=== PATIENT | female | born 1940 | race Caucasian/White ===

== ENCOUNTER → 2017-07-11 | Outpatient (CLI) | payer OTHER | LOC: FIMAGING 09:09 | PROVIDERS: ATTEND Internal Medicine | DX: Z12.31 Encounter for screening mammogram for malignant neoplasm of breast (principal) | CPT/HCPCS: G0202 ==

== ENCOUNTER 2018-04-09 16:31 | Inpatient (IN) | payer OTHER ==
[2018-04-09] MEDS ORDERED: NS 1,600 ML IV ONE (17:17)
[2018-04-09] MEDS ORDERED: ACETAMINOPHEN 500 MG TAB PO ONE (17:18)
--- NOTE | 2018-04-09 17:20 | EDPHY ---
H & P Stated Complaint: l sided abd pain dysuria/fever chills Time Seen by Provider: 04/09/18 17:09 HPI/ROS: CHIEF COMPLAINT: Dysuria, left flank pain, fever HISTORY OF PRESENT ILLNESS: The patient is a 77-year-old female who comes to the emergency department with her daughter who is a family practitioner. She was on a trip and while in [place] over the last week developed dysuria and frequency. Also now some right flank pain and fever. She has not been on any medications. No rashes. No nausea vomiting. No abdominal pain. She states she has not been drinking enough water. Severity: Moderate Modifying factors: Urination REVIEW OF SYSTEMS: Constitutional: denies: chills, fever, recent illness, recent injury EENTM: denies: blurred vision, double vision, nose congestion Respiratory: denies: cough, shortness of breath Cardiac: denies: chest pain, irregular heart rate, lightheadedness, palpitations Gastrointestinal/Abdominal: denies: abdominal pain, diarrhea, nausea, vomiting, blood streaked stools Genitourinary: See HPI Musculoskeletal: denies: joint pain, muscle pain Skin: denies: lesions, rash, jaundice, bruising Neurological: denies: headache, numbness, paresthesia, tingling, dizziness, weakness Hematologic/Lymphatic: denies: blood clots, easy bleeding, easy bruising Immunologic/allergic: denies: HIV/AIDS, transplant EXAM: GENERAL: Well-appearing, well-nourished and in no acute distress. HEAD: Atraumatic, normocephalic. EYES: Pupils equal round and reactive to light, extraocular movements intact, sclera anicteric, conjunctiva are normal. ENT: TMs normal, nares patent, oropharynx clear without exudates. Moist mucous membranes. NECK: Normal range of motion, supple without lymphadenopathy or JVD. LUNGS: Breath sounds clear to auscultation bilaterally and equal. No wheezes rales or rhonchi. HEART: Regular rate and rhythm without murmurs, rubs or gallops. ABDOMEN: Soft, nontender, normoactive bowel sounds. No guarding, no rebound. No masses appreciated. BACK: No CVA tenderness, no spinal tenderness, step-offs or deformities EXTREMITIES: Normal range of motion, no pitting or edema. No clubbing or cyanosis. NEUROLOGICAL: Cranial nerves II through XII grossly intact. Normal speech, normal gait. 5/5 strength, normal movement in all extremities, normal sensation , normal reflexes PSYCH: Normal mood, normal affect. SKIN: Warm, dry, normal turgor, no visible rashes or lesions. Source: Patient Exam Limitations: No limitations - Personal History Current Tetanus/Diphtheria Vaccine: Yes - Medical/Surgical History Hx Asthma: No Hx Chronic Respiratory Disease: No Hx Diabetes: No Hx Cardiac Disease: No Hx Renal Disease: No Hx Cirrhosis: No Hx Alcoholism: No Hx HIV/AIDS: No Hx Splenectomy or Spleen Trauma: No Other PMH: Prediabetic. r heart cath nml. hernia repair. acl repair. bunionectomy. Hypothyroidism - Family History Significant Family History: No pertinent family hx - Social History Smoking Status: Never smoked Alcohol Use: Sober Drug Use: None Constitutional: Initial Vital Signs Temperature (C) 38 C 04/09/18 16:41 Heart Rate 90 04/09/18 16:41 Respiratory Rate 17 04/09/18 16:41 Blood Pressure 136/70 H 04/09/18 16:41 O2 Sat (%) 91 L 04/09/18 16:41 O2 Delivery Mode Nasal Cannula O2 (L/minute) 2 Allergies/Adverse Reactions: No Known Allergies Allergy (Verified 04/09/18 18:51) Home Medications: Medication Instructions Recorded Thyroid,Pork [[place] Thyroid] 15 mg PO DAILY 04/09/18 Thyroid,Pork [[place] Thyroid] 30 mg PO DAILY 04/09/18 Medical Decision Making ED Course/Re-evaluation: 6:15 p.m. We discussed the patient's lab results. She does not appear to be septic. I will start her on Rocephin. She agrees with admission. I discussed the case Dr. Chávez who agrees to admit. Differential Diagnosis: Partial list of the Differential diagnosis considered include but were not limited to; pyelonephritis, urinary tract infection, sepsis and although unlikely based on the history and physical exam, I also considered severe sepsis , shock, abscess, obstruction, ischemia, abscess, PID. - Data Points Laboratory Results: Laboratory Results 04/09/18 17:15 04/09/18 17:15 04/09/18 04/09/18 04/09/18 17:15 17:15 17:15 WBC 13.69 10^3/uL H 10^3/uL (3.80-9.50) RBC 3.81 10^6/uL L 10^6/uL (4.18-5.33) Hgb 11.4 g/dL L g/dL (12.6-16.3) Hct 34.0 % L % (38.0-47.0) MCV 89.2 fL fL (81.5-99.8) MCH 29.9 pg pg (27.9-34.1) MCHC 33.5 g/dL g/dL (32.4-36.7) RDW 13.0 % % (11.5-15.2) Plt Count 280 10^3/uL 10^3/uL (150-400) MPV 9.6 fL fL (8.7-11.7) Neut % (Auto) 83.1 % H % (39.3-74.2) Lymph % (Auto) 8.8 % L % (15.0-45.0) [place] % (Auto) 7.0 % % (4.5-13.0) Eos % (Auto) 0.1 % L % (0.6-7.6) Baso % (Auto) 0.6 % % (0.3-1.7) Nucleat RBC Rel Count 0.0 % % (0.0-0.2) Absolute Neuts (auto) 11.37 10^3/uL H 10^3/uL (1.70-6.50) Absolute Lymphs (auto) 1.20 10^3/uL 10^3/uL (1.00-3.00) Absolute Monos (auto) 0.96 10^3/uL H 10^3/uL (0.30-0.80) Absolute Eos (auto) 0.02 10^3/uL L 10^3/uL (0.03-0.40) Absolute Basos (auto) 0.08 10^3/uL 10^3/uL (0.02-0.10) Absolute Nucleated RBC 0.00 10^3/uL 10^3/uL (0-0.01) Immature Gran % 0.4 % % (0.0-1.1) Immature Gran # 0.06 10^3/uL 10^3/uL (0.00-0.10) PT 14.6 SEC SEC (12.0-15.0) INR 1.12 (0.83-1.16) APTT 29.3 SEC SEC (23.0-38.0) VBG Lactic Acid Sodium 130 mEq/L L mEq/L (135-145) Potassium 4.3 mEq/L mEq/L (3.3-5.0) Chloride 90 mEq/L L mEq/L (97-110) Carbon Dioxide 27 mEq/l mEq/l (22-31) Anion Gap 13 mEq/L mEq/L (8-16) BUN 15 mg/dL mg/dL (7-23) Creatinine 1.0 mg/dL mg/dL (0.6-1.0) Estimated GFR 54 Glucose 109 mg/dL H mg/dL (70-100) Calcium 9.0 mg/dL mg/dL (8.5-10.4) Total Bilirubin 1.6 mg/dL H mg/dL (0.1-1.4) Urine Color Urine Appearance Urine pH Ur Specific [place] Urine Protein Urine Ketones Urine Blood Urine Nitrate Urine Bilirubin Urine Urobilinogen Ur Leukocyte Esterase Urine RBC Urine WBC Ur Epithelial Cells Amorphous Sediment Urine Bacteria Urine Glucose 04/09/18 04/09/18 17:15 16:43 WBC RBC Hgb Hct MCV MCH MCHC RDW Plt Count MPV Neut % (Auto) Lymph % (Auto) [place] % (Auto) Eos % (Auto) Baso % (Auto) Nucleat RBC Rel Count Absolute Neuts (auto) Absolute Lymphs (auto) Absolute Monos (auto) Absolute Eos (auto) Absolute Basos (auto) Absolute Nucleated RBC Immature Gran % Immature Gran # PT INR APTT VBG Lactic Acid 1.0 mmol/L mmol/L (0.7-2.1) Sodium Potassium Chloride Carbon Dioxide Anion Gap BUN Creatinine Estimated GFR Glucose Calcium Total Bilirubin Urine Color PALE YELLOW Urine Appearance HAZY Urine pH 5.0 (5.0-7.5) Ur Specific [place] 1.006 (1.002-1.030) Urine Protein 1+ H (NEGATIVE) Urine Ketones NEGATIVE (NEGATIVE) Urine Blood 1+ H (NEGATIVE) Urine Nitrate NEGATIVE (NEGATIVE) Urine Bilirubin NEGATIVE (NEGATIVE) Urine Urobilinogen NEGATIVE EU EU (0.2-1.0) Ur Leukocyte Esterase 3+ H (NEGATIVE) Urine RBC 15-25 /hpf H /hpf (0-3) Urine WBC 50-182 /hpf H /hpf (0-3) Ur Epithelial Cells TRACE /lpf /lpf (NONE-1+) Amorphous Sediment PRESENT /hpf /hpf (NONE-1+) Urine Bacteria 2+ /hpf H /hpf (NONE SEEN) Urine Glucose 1+ H (NEGATIVE) Medications Given: Discontinued Medications Acetaminophen (Tylenol) 1,000 mg PO EDNOW ONE Stop: 04/09/18 17:19 Last Admin: 04/09/18 17:26 Dose: 1,000 mg Sodium Chloride (Ns) 1,600 mls @ 3,200 mls/hr 30 ml/kg infuse over 30 min ( 1600 ml) IV EDNOW ONE PRN Reason: Protocol Stop: 04/09/18 17:46 Last Admin: 04/09/18 17:27 Dose: 1,600 mls Ceftriaxone Sodium/Dextrose (Rocephin 1 Gm (Premix)) 50 mls @ 100 mls/hr IV EDNOW ONE PRN Reason: Protocol Stop: 04/09/18 18:41 Last Admin: 04/09/18 18:48 Dose: 50 mls Departure - Departure Disposition: [facility] Inpatient Acute Clinical Impression: Pyelonephritis Condition: Fair
[2018-04-09 17:30] LABS: PLATELET COUNT 280 10^3/uL (150-400)
[2018-04-09 17:43] LABS: INR 1.12 (0.83-1.16); PROTIME(PATIENT) 14.6 SEC (12.0-15.0)
[2018-04-09] MEDS ORDERED: ONDANSETRON 4 MG/2 ML VIAL IVP PRN (18:17)
[2018-04-09] MEDS ORDERED: ACETAMINOPHEN 325 MG TAB PO PRN (18:17)
[2018-04-09] MEDS ORDERED: ONDANSETRON DISINTEGRATING 4 MG TAB PO PRN (18:17)
--- NOTE | 2018-04-09 19:53 | GHP ---
[f rep st] HISTORY AND PHYSICAL DATE OF ADMISSION: 04/09/2018 CHIEF COMPLAINT: UTI, fatigue. HISTORY OF PRESENT ILLNESS: A 77-year-old female with hypothyroidism presenting with 6-7 days of fevers, chills, suprapubic pain. She saw her PCP, Dr. Weiss, today when sent over to the ER. She has been traveling in [place] since March 19 and has felt a drastic decline over the last week. She has had just dribbling, urinary output, no appetite. She had significant pain in her right flank 2 days ago that her had to push her around in a wheelchair. She has not been eating and drinking for the past several days. REVIEW OF SYSTEMS: I completed a 10-point review of systems, negative except as noted in HPI. PAST MEDICAL HISTORY: Hypothyroidism, prediabetes, history of enterobacter UTI. PAST SURGICAL HISTORY: Bunionectomy, femoral hernia, varicose veins. FAMILY HISTORY: Dad with emphysema. Mother was healthy. Daughter is a physician. SOCIAL HISTORY: Lives in the area with her . No alcohol, tobacco, or illicits. ALLERGIES: None. HOME MEDICATIONS: [place] 45 mg daily. PHYSICAL EXAMINATION: VITAL SIGNS: Temperature 38.7. Blood pressure is 130/ 75. Heart rate is in the 70s, respirations 20, 98% on 2 L. GENERAL: She is ill appearing, tired. HEENT: Dry mucous membranes. CV: Regular rate and rhythm. No murmurs, gallops, or rubs. LUNGS: Clear. ABDOMEN: Soft, nontender. : Right suprapubic mild flank tenderness to palpation. NEURO: 2 -12 intact. PSYCH: Alert and oriented x3. LABS: WBC 13, hemoglobin 11, hematocrit 34, platelets 280. Sodium 130, potassium 4.4, chloride 90, BUN 15, creatinine is 1. Glucose 109, total bilirubin 1.2, unconjugated 1.2, AST 81, ALT 83, alkaline phos 127. UA +3 leukocytes, 50-182 WBCs, +2 bacteria. Blood and urine cultures are pending. ASSESSMENT AND PLAN: 1. Sepsis: from urinary tract infection. Lactate is normal. Will hydrate. Treat with intravenous ceftriaxone. Cultures are pending. Check a renal ultrasound for abscess with flank tenderness. 2. Hypovolemic hyponatremia: Endorses decreased by mouth intake. Will hydrate and repeat in the morning. 3. Transaminitis: Suspect hypotension with decreased p.o. intake. Will repeat in the morning. 4. Leukocytosis: Secondary to acute infection. Plan as above. 5. Hyperbilirubinemia: infection or stones? No RUQ TTP. US pending 6.Diet: Regular. 7. DVT ppx: Lovenox. DISPOSITION: Patient warrants inpatient admission given acute sepsis warranting IV antibiotics, sepsis and cultures and sensitivities. /[id number]/MODL MTDFred
[2018-04-09] MEDS ORDERED: NS 1,000 ML IV SCH (23:45)
[2018-04-10] MEDS ORDERED: ALBUTEROL 3 ML DEYVIAL IH PRN (00:36)
--- NOTE | 2018-04-10 10:24 | ASMTCMCOM ---
CM Note CM Note Notes: Patient admitted with a UTI and fatigue. She is being treated with IV antibiotics and cultures are pending. She is normally independent and lives with her . No discharge needs identified or anticipated. Date Signed: 04/10/2018 09:57 AM Electronically Signed By:Naila John RN
[2018-04-10] MEDS: ENOXAPARIN 40 MG/0.4 ML SYR SC SCH (11:11)
[2018-04-10] MEDS: Thyroid,Pork [Armour Thyroid] 15 MG PO SCH (11:30)
[2018-04-10] MEDS: Thyroid,Pork [Armour Thyroid] 30 MG PO SCH (11:31)
--- NOTE | 2018-04-10 12:09 | GCON ---
[f rep st] CONSULTATION REASON FOR CONSULTATION: Cholelithiasis, evaluate for cholecystitis. HISTORY: Samara Vazquez is a 77-year-old white female who was traveling in [place] for a iversary trip. For the last several days, her appetite has been dramatically diminished. She has complained of right flank and right upper quadrant pain as well as difficulty urinating. She came back from the trip yesterday and came right to the emergency room after seeing her family doctor. Her urine showed 50-182 white cells per high-power field. She was septic with E coli. She has been started on Ancef. Her white count dropped from 13.7-12.3. As part of her continued evaluation, ultrasound was obtained which did show gallstones to be present. Her gallbladder wall is 3 mm without pericholecystic fluid. The common bile duct is 4 mm. Interestingly, she reports that when Dr. Devyn Deluna did a laparoscopic femoral hernia repair on her, an ultrasound at that time did show gallstones as well. At this point, she describes her pain as being in the flank and it was not colicky. She can find a comfortable position. PHYSICAL EXAMINATION: To my examination, her lungs are clear to auscultation. ABDOMEN: Shows normoactive bowel sounds. She is hungry. She does not have a right upper quadrant pain or a Chambers's sign. Note is made that her bilirubin is 1.0. Her transaminases are slightly elevated (AST 89, ALT 82). Her alkaline phosphatase has dropped from 127-114 ( normal). DISCUSSION: At this time, I feel the gallbladder is an innocent bystander. I suggest that she follow up with Dr. Devyn Deluna for her gallbladder. As she has been totally asymptomatic, I think it could be appropriately watched. I have only added the caveat that we do not know the chronicity and a followup ultrasound would be appropriate at some point in time to make sure we have not developed any neoplastic changes, although none were seen at this time. /[id number]/MODL MTDD
--- NOTE | 2018-04-10 12:10 | PDMN ---
Medical Necessity Medical necessity[place] [facility] Sepsis and Other Febrile Illness, without Focal Infection: 77 y/o w/ sepsis secondary UTI. Treat w/ IV fliuids and antibx, cultures pending. Temp 38.7C, Renal U/S order to check for abscess w/ flank tenderness. Hypovolemic hyponatremia. Transaminitis and leukocytosis. H&H dropped during hospitalization from 11.4/34 to 9.4/28.3. Elevated LFTs. Pt warrants IP admit given acute sepsis warranting IV antibx, sepsis and cultures and sensitivities.
--- NOTE | 2018-04-10 13:51 | HOSPPROG ---
Hospitalist Progress Note Assessment/Plan: 77y female with c/o fatigue. First encounter, chart reviewed. #E.coli bacteremia -urine likely etiol -cont IV CTX #UTI -cx pending -pt symptomatic #Gallstones -chronic -US shows wall thickening -neg murphys sign -D/W Dr Jordan and Dr Melo -conservative care #Sepsis -2/2 bacteremia -resolved #Hypovolemic hyponatremia -responded to fluids -asymptomatic #Transamintis -resolving #Leukocytosis -related to infection -follow #Acute hypoxemic resp failure -IS -cont support #Dispo -unclear -cont IV abx -follow Subjective: Feeling better. No abd pain. No other issues. Family at bedside. Objective: Vital Signs Temp Pulse Resp BP Pulse Ox 36.7 C 84 19 132/68 H 95 04/10/18 12:34 04/10/18 12:34 04/10/18 12:34 04/10/18 12:34 04/10/18 12:34 Laboratory Results 04/10/18 04:15 04/10/18 04:15 04/09/18 04/10/18 04/11/18 05:59 05:59 05:59 Intake Total 3200 421 Output Total 900 875 Balance 2300 -454 PT 14.6 SEC (12.0-15.0) 04/09/18 17:15 INR 1.12 (0.83-1.16) 04/09/18 17:15 - Physical Exam Constitutional: no apparent distress, appears nourished, not in pain Eyes: PERRL, anicteric sclera, EOMI Ears, Nose, Mouth, Throat: moist mucous membranes, hearing normal, ears appear normal Cardiovascular: regular rate and rhythym, No JVD, No tachycardia, No edema Respiratory: no respiratory distress, no rales or rhonchi, reduced air movement Gastrointestinal: normoactive bowel sounds, No tenderness, No ascites Skin: warm, normal color, No mottled Musculoskeletal: normal joint ROM, no joint effusions, generalized weakness Neurologic: AAOx3 Psychiatric: interacting appropriately, not anxious, not encephalopathic, thought process linear ICD10 Worksheet Patient Problems: Problems Problem Status Onset Pyelonephritis Acute
[2018-04-10] MEDS ORDERED: IBUPROFEN 600 MG TAB PO PRN (18:39)
[2018-04-11] MEDS: Thyroid,Pork [Armour Thyroid] 30 MG PO SCH (06:21)
[2018-04-11] MEDS: Thyroid,Pork [Armour Thyroid] 15 MG PO SCH (06:21)
[2018-04-11] MEDS: ENOXAPARIN 40 MG/0.4 ML SYR SC SCH (08:20)
--- NOTE | 2018-04-11 13:25 | HOSPPROG ---
Hospitalist Progress Note Assessment/Plan: 7y female with c/o fatigue. First encounter, chart reviewed. #E.coli bacteremia 2/2 UTI -also patient has a pessary in place, she is wondering if it may have been dirty , has since cleaned it -Ceftriaxone #UTI -spoke with lab about getting sensitivities, cx shows staph, skin howard and gram neg rods -cx pending -pt symptomatic #Gallstones -chronic -US shows wall thickening -neg Chambers sign -appreciate Dr Jordan seeing her #Sepsis secondary to bacteremia -had a fever, + blood cx, high wbc count -improving -per the patient's daughter, her mom wasn't mentating well on admission and now has improved #Hypovolemic hyponatremia -resolved #Transaminitis -resolving #Leukocytosis -related to infection -follow #Acute hypoxemic resp failure -resolved, now on room air #bloating -patient says this is new for her -suspect she is constipated -bowel protocol #anemia -repeat labs in a.m. #Dispo -unclear -cont IV abx -follow Subjective: Samara is c/o bloating. Ambulating well, no significant pain. Objective: Vital Signs Temp Pulse Resp BP Pulse Ox 36.6 C 68 16 133/74 H 93 04/11/18 12:00 04/11/18 12:00 04/11/18 12:00 04/11/18 12:00 04/11/18 12:00 Laboratory Results 04/10/18 04:15 04/10/18 04:15 04/10/18 04/11/18 04/12/18 05:59 05:59 05:59 Intake Total 3200 3646 Output Total 900 1975 Balance 2300 1671 PT 14.6 SEC (12.0-15.0) 04/09/18 17:15 INR 1.12 (0.83-1.16) 04/09/18 17:15 - Physical Exam Constitutional: no apparent distress, appears nourished, not in pain Eyes: PERRL Ears, Nose, Mouth, Throat: hearing normal Cardiovascular: regular rate and rhythym Respiratory: no respiratory distress Gastrointestinal: normoactive bowel sounds, No tenderness Skin: warm Musculoskeletal: full muscle strength Neurologic: AAOx3 Psychiatric: interacting appropriately ICD10 Worksheet Patient Problems: Problems Problem Status Onset Pyelonephritis Acute
[2018-04-11] MEDS ORDERED: MAGNESIUM HYDROXIDE 30 ML UDCUP PO PRN (15:49)
[2018-04-11] MEDS ORDERED: BISACODYL 10 MG SUPP PR PRN (15:49)
[2018-04-11] MEDS ORDERED: LACTULOSE 20 GM/30 ML UDCUP PO PRN (15:49)
[2018-04-11] MEDS: POLYETHYLENE GLYCOL 3350 17 GM PKT PO SCH (17:09)
[2018-04-11] MEDS: SENNOSIDES/DOCUSATE SODIUM TAB PO SCH (20:58)
[2018-04-12 05:12] LABS: PLATELET COUNT 281 10^3/uL (150-400)
[2018-04-12] MEDS: Thyroid,Pork [Armour Thyroid] 15 MG PO SCH (06:15)
[2018-04-12] MEDS: Thyroid,Pork [Armour Thyroid] 30 MG PO SCH (06:16)
--- NOTE | 2018-04-12 08:44 | HOSPPROG ---
Hospitalist Progress Note Assessment/Plan: pt is 77y female with c/o fatigue. #E.coli bacteremia 2/2 UTI -also patient has a pessary in place, she is wondering if it may have been dirty , has since cleaned it -Ceftriaxone #UTI -spoke with lab about getting sensitivities, cx shows staph, skin howard and gram neg rods -cx pending -pt symptomatic #Gallstones -chronic -US shows wall thickening -neg Chambers sign -appreciate Dr Jordan seeing her #Sepsis secondary to bacteremia -had a fever, + blood cx, high wbc count -improving -per the patient's daughter, her mom wasn't mentating well on admission and now has improved #Hypovolemic hyponatremia -resolved #Transaminitis -improving #Leukocytosis -related to infection -follow #Acute hypoxemic resp failure -resolved, now on room air #bloating -ongoing -suspect she is constipated -bowel protocol #cough -patient says this is in the night #anemia -repeat labs in a.m. -will check iron studies #Dispo: pending, will get sensitivities and then dc later today Subjective: Samara has no specific complaints, is bloated. Objective: Vital Signs Temp Pulse Resp BP Pulse Ox 36.7 C 70 16 141/76 H 93 04/12/18 07:14 04/12/18 07:14 04/12/18 07:14 04/12/18 07:14 04/12/18 07:14 Laboratory Results 04/12/18 04:44 04/12/18 04:44 04/11/18 04/12/18 04/13/18 05:59 05:59 05:59 Intake Total 3646 800 Output Total 1975 3000 800 Balance 1671 -2200 -800 PT 14.6 SEC (12.0-15.0) 04/09/18 17:15 INR 1.12 (0.83-1.16) 04/09/18 17:15 - Physical Exam Constitutional: no apparent distress, appears nourished, not in pain Eyes: PERRL Ears, Nose, Mouth, Throat: hearing normal Cardiovascular: regular rate and rhythym, no murmur, rub, or gallop Respiratory: no respiratory distress, clear to auscultation Gastrointestinal: other (bloated, but has no tenderness) Skin: warm, No normal color (pale) Musculoskeletal: full muscle strength Neurologic: AAOx3 Psychiatric: interacting appropriately ICD10 Worksheet Patient Problems: Problems Problem Status Onset Pyelonephritis Acute
[2018-04-12] MEDS: ENOXAPARIN 40 MG/0.4 ML SYR SC SCH (09:00)
[2018-04-12] MEDS: POLYETHYLENE GLYCOL 3350 17 GM PKT PO SCH (09:00)
[2018-04-12] MEDS: SENNOSIDES/DOCUSATE SODIUM TAB PO SCH ×2 (09:00→20:27)
[2018-04-12] MEDS ORDERED: CEPACOL LOZENGE PO PRN (23:10)
[2018-04-13] MEDS ORDERED: Thyroid,Pork [Armour Thyroid] 30 MG PO SCH (06:00)
[2018-04-13] MEDS ORDERED: Thyroid,Pork [Armour Thyroid] 15 MG PO SCH (06:00)
[2018-04-13 07:32] VITALS: BP 131/80
[2018-04-13] MEDS: SENNOSIDES/DOCUSATE SODIUM TAB PO SCH (08:50)
[2018-04-13] MEDS: ENOXAPARIN 40 MG/0.4 ML SYR SC SCH (08:50)
[2018-04-13] MEDS: POLYETHYLENE GLYCOL 3350 17 GM PKT PO SCH (09:10)
--- NOTE | 2018-04-13 10:08 | HOSPPROG ---
Hospitalist Progress Note Assessment/Plan: pt is 77y female with c/o fatigue. #E.coli bacteremia 2/2 UTI -also patient has a pessary in place, she is wondering if it may have been dirty , has since cleaned it -Ceftriaxone #UTI -spoke with lab about getting sensitivities, cx shows staph, skin howard and gram neg rods #Gallstones -chronic -US shows wall thickening -neg Chambers sign -appreciate Dr Jordan seeing her #Sepsis secondary to bacteremia -had a fever, + blood cx, high wbc count -resolved -per the patient's daughter, her mom wasn't mentating well on admission and now has improved #Hypovolemic hyponatremia -resolved #Transaminitis -improving #Leukocytosis -related to infection -follow #Acute hypoxemic resp failure -resolved, now on room air #bloating -better #cough -reviewed chest xray, has some bronchitis #anemia, iron def -OP f/u w recommendation of getting a colonoscopy #Dispo: dc home w close f/u with GI, Surgery, and PCP. Subjective: Samara is feeling much better today, still has a cough. Objective: Vital Signs Temp Pulse Resp BP Pulse Ox 36.7 C 80 12 131/80 H 95 04/13/18 07:29 04/13/18 09:16 04/13/18 09:16 04/13/18 07:29 04/13/18 09:16 Laboratory Results 04/12/18 04:44 04/12/18 04:44 04/12/18 04/13/18 04/14/18 05:59 05:59 05:59 Intake Total 800 Output Total 3000 1200 600 Balance -2200 -1200 -600 PT 14.6 SEC (12.0-15.0) 04/09/18 17:15 INR 1.12 (0.83-1.16) 04/09/18 17:15 - Physical Exam Constitutional: no apparent distress, appears nourished, not in pain Eyes: PERRL Ears, Nose, Mouth, Throat: hearing normal Cardiovascular: regular rate and rhythym Respiratory: no respiratory distress, reduced air movement Skin: warm, No normal color (pale) Musculoskeletal: full muscle strength Neurologic: AAOx3 Psychiatric: interacting appropriately ICD10 Worksheet Patient Problems: Problems Problem Status Onset Pyelonephritis Acute
--- NOTE | 2018-04-13 10:45 | GDS ---
[f rep st] DISCHARGE SUMMARY DISCHARGE DIAGNOSES: 1. Escherichia coli bacteremia, most likely secondary to a urinary tract infection. 2. Urinary tract infection. 3. Gallstones. 4. Sepsis secondary to the bacteremia. 5. Hypovolemic hyponatremia. 6. Transaminitis. 7. Leukocytosis. 8. Acute hypoxemic respiratory failure. 9. Bloating. 10. Cough. 11. Iron deficiency anemia. CONSULTATION: Dr. Elier Jordan. Briefly, this patient is a 77-year-old female with hypothyroidism who presented with 6-7 days of fevers, chills and suprapubic pain. She saw her primary care doctor, Dr. Weiss. He sent her to be evaluated at the emergency room. She has been traveling in [place] since March and felt a drastic decline over the last week. She was admitted and noted to have sepsis secondary to a urinary tract infection. An abdominal ultrasound was performed which showed cholelithiasis with multiple gallstones and gallbladder wall thickening consistent with acute cholecystitis. She is seen and evaluated by Dr. Jordan who did not feel this was acute and recommended further follow up with her primary care provider. During her stay, her blood cultures grew out E coli that was sensitive to the ceftriaxone. She was treated with this. Her urine culture also grew out E coli. She will be discharged home on Levaquin. In addition, she had some ongoing anemia noted to be iron deficiency. Recommendation is further follow up with a redrying machine operator. HOSPITAL COURSE: PER PROBLEM: 1. E coli bacteremia secondary to a UTI. Of note, the patient also has a pessary in place. She is concerned that this may have not been cleaned. She has an appointment with her urologist to get a new one. 2. Urinary tract infection. She will continue on Levaquin for several more days. 3. Gallstones. This is chronic. She has a negative Chambers sign. She will follow up with Dr. Devyn Deluna. 4. Sepsis secondary to bacteremia, resolved. 5. Hypovolemic hyponatremia, resolved. 6. Transaminitis, improving. Labs to be rechecked by her doctor primary care doctor. 7. Leukocytosis related to the infection. 8. Acute hypoxemic respiratory failure, resolved. 9. Bloating, improving. 10. Cough. Reviewed her chest x-ray. She has some bronchitis. 11. Iron-deficiency anemia. Recommending outpatient followup for a colonoscopy. DISCHARGE CONDITION: Stable. Blood pressure is 131/80, heart rate is 70, respiratory rate of 12, O2 sats on room air 95%, temperature is 36.7 Celsius. MEDICATIONS AT DISCHARGE: Please see EMR. DISCHARGE INSTRUCTIONS: 1. Repeat labs including liver enzymes in 2 weeks. 2. Follow up with Dr. Deluna in regard to her gallbladder. 3. To follow up with gastroenterology in regard to her iron deficiency anemia. 4. Take the Levaquin. Reviewed with her the signs and symptoms of tendinitis and to stop this if she has any issues with this. Greater than 30 minutes discharging and coordinating her care. /[id number]/MODL MTDD
--- NOTE | 2018-04-13 11:02 | ASMTLACE ---
[facility] Length of stay for Answers: 3 days current admission Acuity / Level of Answers: Yes Care: Did the patient have an inpatient admission? 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
--- NOTE | 2018-04-13 11:04 | ASMTCMCOM ---
CM Note CM Note Notes: Reviewed pt with FIELD SAMPLING TECHNICIAN, pt will dc home w/support of family when medically stable. CM available for any changes. DC Plan: Independent Date Signed: 04/13/2018 11:03 AM Electronically Signed By:Jeimy Mason RN
== END 2018-04-13 11:25 | disposition home or self-care (01) | DRG 871 ==
LOC: F3E 20:08
PROVIDERS: ADMIT Internal Medicine; ATTEND Internal Medicine
DX: A41.51 Sepsis due to Escherichia coli [E. coli] (principal); N39.0 Urinary tract infection, site not specified; E86.1 Hypovolemia; E87.1 Hypo-osmolality and hyponatremia; J96.01 Acute respiratory failure with hypoxia; R74.0 Nonspecific elevation of levels of transaminase and lactic acid dehydrogenase [LDH]; D50.9 Iron deficiency anemia, unspecified; R14.0 Abdominal distension (gaseous); K80.20 Calculus of gallbladder without cholecystitis without obstruction; J20.9 Acute bronchitis, unspecified; E03.9 Hypothyroidism, unspecified; R73.03 Prediabetes
CPT/HCPCS: 96365; J0696; J1650; J7613

== ENCOUNTER → 2018-07-12 | Outpatient (CLI) | payer OTHER | LOC: FIMAGING 11:20 | PROVIDERS: ATTEND Internal Medicine | DX: Z12.31 Encounter for screening mammogram for malignant neoplasm of breast (principal) ==

== ENCOUNTER → 2019-01-21 | Outpatient (CLI) | payer OTHER | LOC: FLAB 15:17 ==